=== PATIENT | female | born 1980 | race Caucasian/White ===

== ENCOUNTER 2021-03-28 17:08 | Emergency (ER) | payer MEDICAID ==
[~2021-03-28] VITALS: Ht 154.9 cm; Wt 81.6 kg
--- NOTE | 2021-03-28 17:25 | NUR ---
PATIENT WAS MSE BY DR FERNANDEZ IN ROOM 02A.
[2021-03-28] MEDS ORDERED: IV NORMAL SALINE 1000 ML BAG IV ONE (17:30)
[2021-03-28] MEDS ORDERED: METOCLOPRAMIDE HCL 10 MG/2 ML VIAL IV ONE (17:30)
[2021-03-28 17:48] LABS: HEMATOCRIT 39.3 % (31.2-41.9); MEAN CORPUSCULAR HEMOGLOBIN 31.1 uug (24.7-32.8); MEAN CORPUSCULAR VOLUME 91.5 fL (75.5-95.3); PLATELET COUNT (AUTO) 254 K/uL (179-408)
[2021-03-28] MEDS ORDERED: METOCLOPRAMIDE HCL 10 MG/2 ML VIAL ONE (17:53)
[2021-03-28 17:56] LABS: CARBON DIOXIDE 27 mmol/L (21-32); CHLORIDE 103 mmol/L (98-107); CREATININE 0.7 mg/dL (0.6-1.3); GLUCOSE 84 mg/dL (74-106); POTASSIUM 3.9 mmol/L (3.5-5.1); UREA NITROGEN, BLOOD 13 mg/dL (7-18)
[2021-03-28 18:07] LABS: ALANINE AMINOTRANSFERASE 26 U/L (14-59); ALKALINE PHOSPHATASE 57 U/L (50-136); ASPARTATE AMINOTRANSFERASE 15 U/L (15-37); BILIRUBIN,DIRECT 0.2 mg/dL (0.0-0.2); BILIRUBIN,TOTAL 0.7 mg/dL (0.2-1.0); TOTAL PROTEIN, SERUM 7.3 g/dL (6.4-8.2)
[2021-03-28] MEDS ORDERED: METRONIDAZOLE 500 MG/NS 100 ML PIGGYBACK IV ONE (18:15)
[2021-03-28] MEDS ORDERED: ACETAMINOPHEN ES 500 MG TABLET PO ONE (18:15)
[2021-03-28] MEDS ORDERED: DOXYCYCLINE HYCLATE IV 100 MG in IV DEXTROSE 5% 100 ML IV ONE (18:15)
[2021-03-28] MEDS ORDERED: HYDROMORPHONE 1 MG/1 ML DISP.SYRIN IV ONE ×2 (18:15→21:15)
[2021-03-28] MEDS ORDERED: HYDROMORPHONE 1 MG/1 ML DISP.SYRIN ONE ×2 (18:21→21:04)
[2021-03-28] MEDS ORDERED: ACETAMINOPHEN ES 500 MG TABLET ONE (19:03)
[2021-03-28] MEDS ORDERED: METRONIDAZOLE 500 MG/NS 100ML 100 ML IV ONE (19:04)
[2021-03-28 19:06] LABS: *BILIRUBIN,URIN NEGATIVE (NEGATIVE); *BLOOD, URINE NEGATIVE (NEGATIVE); *CLARITY,URINE CLEAR (CLEAR); *COLOR,URINE YELLOW (YELLOW); *KETONES,URINE NEGATIVE (NEGATIVE); *UROBILINOGEN,URINE 0.2 E.U./dl (NORMAL); LEUKOCYTE ESTERASE ,URINE NEGATIVE (NEGATIVE); NITRITE, URINE NEGATIVE (NEGATIVE); UGLUCOSE NEGATIVE (NEGATIVE)
--- NOTE | 2021-03-28 19:06 | NUR ---
Tere Tse MD WAS CALLED WAITING FOR CALLBACK.
--- NOTE | 2021-03-28 19:12 | NUR ---
REPORT GIVEN TO NURSE INGRAM
--- NOTE | 2021-03-28 19:16 | NUR ---
report recieved from KORTNEY Fuentes. Pt has good color, temp and appearance. VSS, PE WNL. Flagyl currently running, then will hang another abx. Pt tolerating well with no s/sx of reaction or distress.
--- NOTE | 2021-03-28 19:40 | NUR ---
Dinner tray given to pt after making sure it was ok for her to eat with EDMD.
--- NOTE | 2021-03-28 19:50 | NUR ---
Pt ate 100% of her dinner. Second abx hung and running. Pt resting comfortably watching tv, no complaints of pain or nausea.
[2021-03-28] MEDS ORDERED: DOXYCYCLINE HYCLATE 100 MG INJ IV ONE (19:56)
--- NOTE | 2021-03-28 20:50 | NUR ---
Pt complaining of 7/10 lt lower abd pain, she's describing it as a constant sharp cramping and stabbing pain. Verbal order given by EDMD Dr. Frias for 0.5mg more of dilaudid. Med administered via IVP, pt states med is very effective.
--- NOTE | 2021-03-28 21:18 | NUR ---
second call placed to [facility]. told Sam Padilla MD will call back.
--- NOTE | 2021-03-28 21:50 | NUR ---
Dr Frias spoke to Dr Tere DRUMMOND for consult.
--- NOTE | 2021-03-28 22:00 | NUR ---
Abx infusing complete. Pt primary line DCed from pt.
[2021-03-28] MEDS ORDERED: DOXY100C5 PO (22:12)
[2021-03-28] MEDS ORDERED: OXYC-128 PO (22:12)
--- NOTE | 2021-03-28 22:35 | NUR ---
Pt given DC instructions and medication info. Pt confirms understanding of aftercare instructions and states that she will follow aftercare instructions closely as well as follow up with EDMD referral for patient registration representative. Pt has great color, temp and appearance, VSS, PE WNL, denies any pain, nausea or discomfort. No s/sx of distress present. Pt very greatful and thankful of services recieved.
--- NOTE | 2021-03-28 23:30 | NUR ---
DARLYN Frias at pt bedside discussing pt dispo at length and giving her some advice regarding some beneficial dietary supplements she might want to get. Pt was very appreciative and said she would definitly start taking those supplements.
[2021-03-29 00:07] VITALS: BP 128/83
[2021-04-01 21:35] LABS: *GC NAA Negative; *TRIC.VAG. NAA Negative
== END 2021-03-28 22:35 | disposition home or self-care (01) ==
LOC: ER 17:12
DX: B34.9 Viral infection, unspecified (principal); R10.2 Pelvic and perineal pain; N93.9 Abnormal uterine and vaginal bleeding, unspecified
CPT/HCPCS: 36415; 76856; 80048; 80076; 81003; 84702; 85025; 85730; 86850; 86900; 86901; 87491; 96361; 96365; 96366; 96368; 96375; 96376; 99285; J1170 ×2; J2765; J3490 ×2; J7060; A4663; A9150; J7030